=== PATIENT | male | born 1995 | race Caucasian/White ===

== ENCOUNTER 2017-01-29 12:01 | Emergency (ER) | payer OTHER ==
[~2017-01-29] VITALS: Ht 182.9 cm; Wt 93.8 kg
[2017-01-29 10:54] LABS: HEMATOCRIT 46.1 % (39.2-51.8); HEMOGLOBIN 15.8 g/dL (13.7-18.0); WHITE BLOOD COUNT 5.8 x10^3/uL (3.4-10)
[2017-01-29 11:04] LABS: PATH.CAST-FLAG NOT PRESENT; SPERM-FLAG NOT PRESENT; SRC-FLAG NOT PRESENT; YLC-FLAG NOT PRESENT
[2017-01-29 11:06] LABS: BLOOD UREA NITROGEN 12 mg/dL (7-18)
[2017-01-29 11:10] LABS: ASPARTATE AMINO TRANSFERASE 17 U/L (15-37)
[~2017-01-29 12:01] MED LIST: OMNIPAQUE 350 MG/ML, 100ML BOTTLE ONE; ONDANSETRON 2MG/ML, 2ML IVPush ONE; SODIUM CHLORIDE FLUSH 10ML SYR IVF ONE
[2017-01-29 12:03] LABS: XTAL-FLAG NOT PRESENT
[2017-01-29 12:22] VITALS: BP 118/72
== END 2017-01-29 12:32 | disposition home or self-care (01) ==
LOC: ED 12:01
DX: N30.90 Cystitis, unspecified without hematuria (principal)
CPT/HCPCS: 36415; 74177; 80053; 81001; 83690; 85025; 87086; 99285; Q9967